=== PATIENT | male | born 2000 | race Caucasian/White ===

== ENCOUNTER → 2021-05-10 | Outpatient (CLI) | payer BC | LOC: ULTRA 09:54 | PROVIDERS: ATTEND Family Medicine | DX: K59.00 Constipation, unspecified (principal) ==

== ENCOUNTER → 2021-12-09 | Outpatient (CLI) | payer BC ==
--- NOTE | 2021-12-09 15:16 | 2DMMODE ---
[facility] [place] [address] 2 D/M-MODE ECHOCARDIOGRAM Name: FATIMAH GILBERT Room #: ELE SMITH Mahsa#: [id number] Admission: 12/09/21 Attend Phys: Physician not on staff Discharge: Date of : 01 Report #: [id number] THIS REPORT FOR: cc: Cruz Barrera MD, Neal A. MD Santiago, Patrick MD [facility] ~ APPROVED REPORT Study performed: 12/09/2021 14:24:29 EXAM: Comprehensive 2D, Doppler, and color-flow Echocardiogram Patient Location: Out-Patient Status: routine BSA: 1.95 HR: 77 bpm Rhythm: NSR Other Information Study Quality: Excellent Indications Systemic sclerosis, Raised anitbody titer. 2D Dimensions IVSd: 9.77 (7-11mm) LVOT Diam: 23.90 (18-24mm) LVDd: 50.27 mm PWd: 8.67 (7-11mm) Ascending Ao: 35.26 (22-36mm) LVDs: 30.30 (25-40mm) Left Atrium: 36.25 (27-40mm) Aortic Root: 34.24 mm Volumes Left Atrial Volume (Systole) Single Plane 4CH: 37.91 mL Single Plane 2CH: 44.08 mL LA ESV Index: 23.00 mL/m2 Aortic Valve AoV Peak Bradley.: 1.18 m/s AO Peak Gr.: 5.57 mmHg LVOT Max P.03 mmHg LVOT Max V: 0.87 m/s THAIS Vmax: 3.31 cm2 [facility] [address] [place] [address] 2 D/M-MODE ECHOCARDIOGRAM Name: FATIMAH GILBERT Room #: REG CL Mahsa#: [id number] Admission: 12/09/21 Attend Phys: Physician not on s Discharge: Date of : 01 Report #: [id number] Mitral Valve E/A Ratio: 2.6 MV Decel. Time: 207.73 ms MV E Max Bradley.: 0.86 m/s MV A Bradley.: 0.33 m/s MV PHT: 60.24 ms IVRT: 55.36 ms Pulmonary Valve PV Peak Bradley.: 0.96 m/s PV Peak Gr.: 3.66 mmHg Pulmonary Vein P Vein S: 0.34 m/s P Vein D: 0.72 m/s P Vein S/D Ratio: 0.47 Tricuspid Valve TR Peak Bradley.: 1.78 m/s RAP Estimate: 5.00 mmHg TR Peak Gr.: 13.00 mmHg PA Pressure: 18.00 mmHg Left Ventricle The left ventricle is normal size. There is normal LV segmental wall motion. There is normal left ventricular wall thickness. Left ventricular systolic function is normal. LVEF is 55-60%. The left ventricular diastolic function is normal. Right Ventricle The right ventricle is normal size. The right ventricular systolic function is normal. Atria The left atrium size is normal. The right atrium size is normal. Aortic Valve The aortic valve is normal in structure. No aortic regurgitation is present. There is no aortic valvular stenosis. Mitral Valve The mitral valve is normal in structure. There is no mitral valve regurgitation noted. No evidence of mitral valve stenosis. Tricuspid Valve The tricuspid valve is normal in structure. Trace tricuspid regurgitation. Estimated PAP is 18mmHG. [facility] [place] [address] 2 D/M-MODE ECHOCARDIOGRAM Name: FATIMAH GILBERT Room #: REG [facility].#: [id number] Admission: 12/09/21 Attend Phys: Physician not on s Discharge: Date of : 01 Report #: [id number] Pulmonic Valve The pulmonary valve is normal in structure. Trace pulmonic regurgitation. Great Vessels The aortic root is normal in size. The ascending aorta is normal in size. IVC is normal in size and collapses >50% with inspiration. Pericardium There is no pericardial effusion. <Conclusion> Normal left ventricle size/wall thickness central ejection fraction 55% Normal diastolic function Normal right ventricular size/function Normal atrial size Normal aortic/mitral valve structure and function Trace tricuspid valve insufficiency Pulmonary systolic pressure estimated at 18 mmHg No pericardial effusion Normal aortic root size. <ELECTRONICALLY SIGNED> By: Betrin Garcia MD, [facility] 12/09/21 [id number] Bertin Garcia MD, [facility] /INF
== END ==
LOC: CV 11-21 14:55
DX: M34.9 Systemic sclerosis, unspecified (principal); R76.0 Raised antibody titer